=== PATIENT | male | born 1940 | race Caucasian/White ===

== ENCOUNTER 2017-02-03 06:53 | Day surgery (SDC) | payer BC ==
[~2017-02-03] VITALS: Ht 157.5 cm; Wt 87.1 kg
[2017-02-03 08:23] LABS: Basophils # (auto) 0 uL; Basophils % (auto) 0.5 % (0.0-2.0); Eosinophils # (auto) 0.6 uL; Eosinophils % (auto) 5.6 % (0.0-7.0); Hematocrit 48.3 % (41.0-53.0); Hemoglobin 16.6 g/dL (13.5-17.5); Lymphocytes # (auto) 1.8 uL; Lymphocytes % (auto) 18.3 % (10.0-50.0); Mean Corpuscular Hemoglobin 31.3 pg (28.0-32.0); Mean Corpuscular Hgb Conc. 34.4 g/dL (32.0-36.0); Mean Corpuscular Volume 90.9 fL (80.0-100.0); Mean Platelet Volume 8.4 fL (7.4-10.4); Monocytes # (auto) 0.8 uL; Monocytes % (auto) 7.9 % (0.0-12.0); Neutrophils # (auto) 6.8 uL; Neutrophils % (auto) 67.7 % (37.0-80.0); Platelet Count (auto) 255 10^3/uL (140-450); Red Cell Distribution Width 13.4 % (11.6-16.0); White Blood Cell 10.1 10^3/uL (4.4-10.8)
[2017-02-03 08:39] LABS: BUN/Creatinine Ratio 13.9; Calcium 8.9 mg/dL (8.5-10.1); Potassium 3.6 mmol/L (3.5-5.1)
[2017-02-03] MEDS ORDERED: CLINDAMYCIN 600MG IV 50 ML IV ONE ×2 (09:25→10:47)
[2017-02-03 09:37] LABS: INR 1.02 (0.9-1.15); Partial Thromboplastin Time 24.7 sec (22.64-33.71)
[2017-02-03] MEDS ORDERED: NEOMYCIN-BACITRACIN-POLYM 15GM TOP OINT TOP ONE (10:42)
[2017-02-03] MEDS ORDERED: ceFAZolin 1GM VL ONE (10:42)
[2017-02-03] MEDS ORDERED: BUPIVACAINE 0.75% INJ 10ML MPV SDV IJ ONE (10:42)
[2017-02-03] MEDS ORDERED: fentaNYL CITRATE 100 MCG/2 ML VL ONE (10:46)
[2017-02-03] MEDS ORDERED: MIDAZOLAM HCL 1MG/1ML-2 ML VIAL ONE (10:47)
[2017-02-03] MEDS ORDERED: PROPOFOL 10 MG/ML 20 ML IV ONE (10:47)
[2017-02-03] MEDS ORDERED: ePHEDrine SULFATE 50 MG/ML AMP IV PRN (11:45)
[2017-02-03] MEDS ORDERED: ONDANSETRON HCL 4 MG/2 ML VIAL IV ONE (11:45)
[2017-02-03] MEDS ORDERED: hydrALAZINE HCL 20 MG/ML VL IV PRN (11:45)
[2017-02-03] MEDS ORDERED: fentaNYL CITRATE 100 MCG/2 ML VL IV ONE (12:00)
[2017-02-03 12:25] VITALS: BP 138/89
== END 2017-02-03 12:30 | disposition home or self-care (01) ==
LOC: SUR 06:53
PROVIDERS: ATTEND Podiatrist Foot & Ankle Surgery
DX: M20.42 Other hammer toe(s) (acquired), left foot (principal); L03.031 Cellulitis of right toe
CPT/HCPCS: 11750; 28285; 36415; 71010; 80048; 85025; 85610; 85730; 88304; 88311; 93005; J0690; J2250; J2704; J3010; J3490; V2790

== ENCOUNTER → 2018-05-26 | Outpatient (CLI) | payer BC ==
[~2018-05-26] VITALS: Ht 176.5 cm; Wt 86.6 kg
== END | disposition home or self-care (01) ==
LOC: Rad HDHVI 13:53
PROVIDERS: ATTEND Internal Medicine Cardiovascular Disease
DX: I10 Essential (primary) hypertension (principal); I35.1 Nonrheumatic aortic (valve) insufficiency
CPT/HCPCS: 78452; 93017; 96374; A9500

== ENCOUNTER → 2019-02-01 | Outpatient (CLI) | payer BC ==
[~2019-02-01] MED LIST: IOHEXOL 350 MG/ML 100ML IJ ONE
[2019-02-01 15:24] VITALS: BP 157/96
--- NOTE | 2019-02-01 15:30 | NUR ---
IV insertion IV access obtained, via clean sterile technique by inserting 20 gauge catheter at LAC after 1 attempt(s). IV secured properly. No trauma to site. Patient tolerated procedure well.
[2019-02-01 16:19] LABS: BUN/Creatinine Ratio 14.4; Calcium 8.6 mg/dL (8.5-10.1); Potassium 3.7 mmol/L (3.5-5.1)
--- NOTE | 2019-02-01 16:40 | NUR ---
IV removal IV DC'd with sterile technique, catheter fully intact. Pressure dressing applied to site. Patient tolerated procedure well.
[2019-02-01 16:44] VITALS: BP 171/97
--- NOTE | 2019-02-01 16:44 | NUR ---
[facility] Discharge Instructions See e-MAR for any mediations given with this visit. Patient education given on disease process. Patient verbalized understanding. Previous labs reviewed. Patient discharged in stable condition with after care instructions and follow up appointment. NOTE PATIENT EDUCATED TO DRINK PLENTY OF FLUIDS OVER THE NEXT 24 HRS, PATIENT VERBALIZED UNDERSTANDING. PATIENT WILL TAKE BP MEDS WHEN HE GETS HOME.
[2019-02-02 14:57] LABS: Hepatitis B Surface Antibody Negative
[2019-02-02 15:30] LABS: Hepatitis A Total Antibody Positive
[2019-02-02 15:40] LABS: Hepatitis B Core Total AB Negative; Hepatitis C Antibody Negative (Negative)
[2019-02-02 15:41] LABS: Hepatitis B Surface Antigen Negative (Negative)
== END | disposition home or self-care (01) ==
LOC: Rad HDHVI 15:07
PROVIDERS: ATTEND Internal Medicine Cardiovascular Disease
DX: K80.20 Calculus of gallbladder without cholecystitis without obstruction (principal); K40.90 Unilateral inguinal hernia, without obstruction or gangrene, not specified as recurrent; I11.0 Hypertensive heart disease with heart failure; I50.33 Acute on chronic diastolic (congestive) heart failure; R76.0 Raised antibody titer; R94.6 Abnormal results of thyroid function studies; E83.01 Wilson's disease; I70.8 Atherosclerosis of other arteries; Z20.5 Contact with and (suspected) exposure to viral hepatitis
CPT/HCPCS: 36415; 74177; 80048; 82390; 86376; 86704; 86706; 86708; 86803; 87340; G0463; Q9967